=== PATIENT | male | born 1970 | race Caucasian/White ===

== ENCOUNTER 2018-08-04 19:27 | Emergency (ER) | payer OTHER ==
[~2018-08-04] VITALS: Ht 177.8 cm; Wt 89.9 kg
[2018-08-04] MEDS ORDERED: PROMETHAZINE 25 MG/ML, 1ML IM ONE (20:00)
--- NOTE | 2018-08-04 20:08 | NUR ---
pt called to room from lobby
[2018-08-04 20:26] LABS: BASOPHILS # (AUTO) 0.04 x10^3/uL (0-0.1); BASOPHILS % (AUTO) 1 % (0-1); EOSINOPHILS # (AUTO) 0.02 x10^3/uL (0-0.4); EOSINOPHILS % (AUTO) 0 % (1-7); LYMPHOCYTES # (AUTO) 1.55 x10^3/uL (1-3.4); LYMPHOCYTES % (AUTO) 23 % (22-44); MD NO; MEAN CORPUSCULAR HEMOGLOBIN 30.5 pg (27.5-34.5); MEAN CORPUSCULAR HGB CONC 34.4 g/dL (33.2-36.2); MEAN CORPUSCULAR VOLUME 88.5 fL (81-97); MEAN PLATELET VOLUME 9.8 fL (7.4-10.4); MONOCYTES # (AUTO) 0.39 x10^3/uL (0.2-0.8); MONOCYTES % (AUTO) 6 % (2-9); NEUTROPHILS # (AUTO) 4.71 x10^3/uL (1.8-6.8); NEUTROPHILS % (AUTO) 70 % (42-75); PLATELET COUNT 207 x10^3/uL (130-400); RED BLOOD COUNT 5.18 x10^6/uL (4.38-5.82); RED CELL DISTRIBUTION WIDTH 12.6 % (9.4-14.8)
[2018-08-04 20:29] LABS: ALANINE AMINOTRANSFERASE 26 U/L (12-78); ALBUMIN 4.3 g/dL (3.4-5.0); ANION GAP 8 mmol/L (5-15); CALCIUM 9.2 mg/dL (8.5-10.1); CHLORIDE 106 mmol/L (98-107); CREATININE 1.04 mg/dL (0.7-1.3)
[2018-08-04] MEDS ORDERED: PLEASE ENTER ALLERGIES MC SCH (20:30)
[2018-08-04 20:31] LABS: ALKALINE PHOSPHATASE 55 U/L (45-117); BILIRUBIN,TOTAL 1.1 mg/dL (0.2-1.0); TOTAL PROTEIN 7.9 g/dL (6.4-8.2)
[2018-08-04] MEDS ORDERED: ONDANSETRON ODT 4 MG ONE (20:55)
[2018-08-04] MEDS ORDERED: PROMETHAZINE 25 MG/ML, 1ML ONE (20:55)
[2018-08-04] MEDS ORDERED: DICYCLOMINE 10 MG/ML, 2ML ONE (20:56)
[2018-08-04] MEDS ORDERED: FAMOTIDINE 20 MG/2 ML ONE (20:56)
[2018-08-04] MEDS ORDERED: FAMOTIDINE 20 MG/2 ML IVPush ONE (21:00)
[2018-08-04] MEDS ORDERED: ONDANSETRON ODT 4 MG PO ONE (21:00)
[2018-08-04] MEDS ORDERED: DICYCLOMINE 10 MG/ML, 2ML IM ONE (21:00)
--- NOTE | 2018-08-04 21:00 | NUR ---
FIRST CONTACT WITH PT. PT C/O ABD PAIN/N/V AFTER PT ATE LEFT OVER. PT'S AOX4. RESPS EVEN AND UNLABORED. BP/SPO2 MONITORS IN PLACE. CALL LIGHT WITHIN REACH.
--- NOTE | 2018-08-04 21:09 | NUR ---
REPORT RECEIVED FROM YISEL QUEVEDO.
--- NOTE | 2018-08-04 21:09 | NUR ---
PT MEDICATED PER EMAR. PT TOLERATED WELL. PT'S AOX4. RESPS EVEN AND UNLABORED.
[2018-08-04 21:34] VITALS: BP 123/77
--- NOTE | 2018-08-04 21:39 | NUR ---
PT GIVEN DC INSTRUCTIONS AND SCRIPTS. PT EDUCATED REGARDING DC MEDICATIONS. PT AMB TO DC WITH STEADY GAIT. NO ACUTE DISTRESS AT DC.
== END 2018-08-04 21:40 | disposition home or self-care (01) ==
LOC: ED 21:00
DX: G43.A1 Cyclical vomiting, in migraine, intractable (principal)
CPT/HCPCS: 36415; 80053; 83690; 85025; 96372; 96374; 99283; J0500; J2550; J3490; Q0162